=== PATIENT | male | born 1980 | race African-American/Black ===

== ENCOUNTER 2020-01-08 01:59 | Emergency (ER) | payer OTHER ==
[~2020-01-08] VITALS: Ht 185.4 cm; Wt 179.2 kg
[2020-01-08 02:27] VITALS: BP 148/89
[2020-01-08] MEDS ORDERED: IBUPROFEN 600 MG TABLET PO ONE ×2 (02:55→03:00)
== END 2020-01-08 03:02 | disposition home or self-care (01) ==
LOC: ER 02:07
DX: S03.42XA Sprain of jaw, left side, initial encounter (principal); I10 Essential (primary) hypertension; I48.91 Unspecified atrial fibrillation; J45.909 Unspecified asthma, uncomplicated; X58.XXXA Exposure to other specified factors, initial encounter; Y93.89 Activity, other specified; Y92.89 Other specified places as the place of occurrence of the external cause; Y99.8 Other external cause status